=== PATIENT | female | born 1985 | race Caucasian/White ===

== ENCOUNTER 2018-04-17 15:09 | Outpatient (REF) | payer BC, SELFPAY ==
[2018-04-20 15:21] LABS: Chlamydia Result Negative; GC Result Negative; Specimen Description CERVIX
== END 2018-04-17 15:29 ==
LOC: LBN 15:09
PROVIDERS: Visit Provider Obstetrics & Gynecology Gynecology
DX: A64 Unspecified sexually transmitted disease (principal); Z11.3 Encounter for screening for infections with a predominantly sexual mode of transmission
CPT/HCPCS: 87491; 87591

== ENCOUNTER 2018-04-20 12:01 | Outpatient (CLI) | payer BC, SELFPAY ==
[2018-04-20 23:33] LABS: Estradiol 46 pg/ml
[2018-04-21 09:31] LABS: FSH 7.3 mIU/ml; LH 4.8 mIU/ml
[2018-04-24 16:45] LABS: Antimullerian Hormone 2.2 ng/mL (0.9-9.5)
== END 2018-04-20 12:21 ==
PROVIDERS: PCP Nurse Practitioner Family; Visit Provider Obstetrics & Gynecology Gynecology
DX: N97.9 Female infertility, unspecified (principal)
CPT/HCPCS: 36415; 82670; 83001; 83002; 83520

== ENCOUNTER 2018-04-27 11:44 | Outpatient (CLI) | payer BC, SELFPAY ==
[2018-04-27 22:52] LABS: Estradiol 1308 pg/ml
== END 2018-04-27 12:04 ==
PROVIDERS: PCP Nurse Practitioner Family; Visit Provider Obstetrics & Gynecology Gynecology
DX: Z31.9 Encounter for procreative management, unspecified (principal); Z31.69 Encounter for other general counseling and advice on procreation
CPT/HCPCS: 36415; 82670; 83001